=== PATIENT | female | born 1970 | race Caucasian/White ===

== ENCOUNTER 2016-11-27 16:14 | Inpatient (IN) | payer OTHER ==
[~2016-11-27] VITALS: Ht 160 cm; Wt 86.3 kg
[2016-11-27 19:00] VITALS: Ht 160 cm; Wt 86.3 kg
[2016-11-27] MEDS ORDERED: ZOLPIDEM 5 MG TAB PO PRN (19:00)
[2016-11-27] MEDS ORDERED: morphine 2 MG INJ IV PRN (19:00)
[2016-11-27] MEDS ORDERED: DOCUSATE SODIUM 100 MG CAP PO PRN (19:00)
[2016-11-27] MEDS ORDERED: NACL 0.9% 3 ML SYG IV SCH (19:00)
[2016-11-27] MEDS ORDERED: ACETAMINOPHEN 325 MG TAB PO PRN (19:00)
[2016-11-27] MEDS ORDERED: HYDROCODONE/APAP (5/325) TAB PO PRN (19:00)
[2016-11-27] MEDS ORDERED: ONDANSETRON 4 MG INJ IV PRN (19:00)
[2016-11-27 21:44] VITALS: BP 140/75; RESP 18
[2016-11-28 05:25] LABS: ADD SCAN DIFF NO
[2016-11-28 05:34] LABS: BASOPHIL # 0.1 10^3/ul (0.0-0.1); BASOPHILS % 0.6 % (0.0-2.0); EOSINOPHILS # 0.3 10^3/ul (0.0-0.5); EOSINOPHILS % 2.3 % (0.0-7.0); HEMATOCRIT 28.6 % (37.0-47.0); HEMOGLOBIN 8.7 g/dl (12.0-16.0); LYMPHOCYTES % 26.4 % (15.0-51.0); MEAN CORPUSCULAR HEMOGLOBIN 25.1 pg (29.0-33.0); MEAN CORPUSCULAR HGB CONC 30.4 g/dl (32.0-37.0); MEAN CORPUSCULAR VOLUME 82.7 fl (82.0-101.0); MEAN PLATELET VOLUME 9.5 fl (7.4-10.4); MONOCYTE # 1.1 10^3/ul (0.3-0.9); MONOCYTES % 9.3 % (0.0-11.0); NEUTROPHIL # 6.9 10^3/ul (1.6-7.5); NEUTROPHILS % 60.3 % (39.0-77.0); NUCLEATED RED BLOOD CELLS% 0.4 /100WBC (0.0-0.0); PLATELET COUNT 419 10^3/UL (140-415); RED BLOOD COUNT 3.46 10^6/ul (4.20-5.40); RED CELL DISTRIBUTION WIDTH 14.8 % (11.5-14.5); WHITE BLOOD COUNT 11.4 10^3/ul (4.8-10.8)
[2016-11-28 05:42] LABS: IRON 24 ug/dl (35-150)
[2016-11-28 05:46] LABS: ALBUMIN 4.1 g/dl (3.3-4.9); ALBUMIN/GLOBULIN RATIO 1.78; BILIRUBIN,INDIRECT 0.3 mg/dl (0-1.1); BILIRUBIN,TOTAL 0.3 mg/dl (0.2-1.3); CALCIUM 8.4 mg/dl (8.4-10.2); CHOL/HDL RATIO 2.8 RATIO; CREATININE 0.81 mg/dl (0.44-1.00); MAGNESIUM 1.9 mg/dl (1.7-2.5); PHOSPHORUS 4.9 mg/dl (2.5-4.9); POTASSIUM 3.9 mmol/L (3.5-5.1); TOTAL PROTEIN 6.4 g/dl (6.1-8.1)
[2016-11-28 05:51] LABS: TOTAL IRON BINDING CAPACITY 369 ug/dl (241-421)
[2016-11-28] MEDS ORDERED: PANTOPRAZOLE 40 MG INJ IV SCH (06:00)
[2016-11-28 07:55] LABS: T3 UPTAKE 32.9 % (23.5-40.5)
[2016-11-28 08:14] VITALS: BP_SYST 11; BP_SYST 111; BP_DIAS 70; RESP 18
[2016-11-28 08:43] LABS: FOLATE 12.2 ng/ml (2.8-20.0)
--- NOTE | 2016-11-28 08:58 | HP ---
DATE OF ADMISSION: 11/27/2016 TIME SEEN: 2300. CHIEF COMPLAINT: Vaginal bleeding and anemia. HISTORY OF PRESENT ILLNESS: The patient is a 46-year-old female with no significant past medical hi story, who initially went to an outside hospital because of abnormal labs, with a low hemoglobin, as well as for continued vaginal bleeding. She said over the past 1 month she has been having vaginal bleeding on a daily basis. She went to a clinic where labs were drawn and her hemoglobin was found to be 6.1, and as such, she was instructed to go to the hospital. At [facility], latosha munguia she went, she was found to be anemic, was started on a blood transfusion, and was seen by NUT ROASTER. I read their notes and it states that the patient has regular periods, with her menses lasting 4 to 5 days, and as such, they stated that they did not find the etiology of her anemia and in fact, the ir recommendation was for a GI evaluation. However, the patient clearly stated here that she has be en having vaginal bleeding every day for the past 1 month. Transvaginal ultrasound was done at [facility], which showed a possible gestational sac in the endometrium, as well as bilateral complex o varian cysts measuring 2.4 cm on the right and about 1.5 cm on the left. Except for lightheadedness and vertigo-like symptoms that the patient experienced a few days ago, vinny munguia stated she did not have any symptoms. Currently she is also stating she is feeling well. She den ied abdominal pain, chest pain, dizziness/lightheadedness, palpitations, fever, chills, or urinary s ymptoms. PAST SURGICAL HISTORY: Includes and tubal ligation. REVIEW OF SYSTEMS: A 12-point review of systems was performed and negative except as mentioned in t he HPI. PAST MEDICAL HISTORY: As per HPI. PAST SURGICAL HISTORY: As per HPI. SOCIAL HISTORY: Denied a history of tobacco, alcohol or illicit drug use. ALLERGIES: NO KNOWN DRUG ALLERGIES. HOME MEDICATIONS: She takes Tylenol as needed and cranberry tablets. PHYSICAL EXAMINATION: VITAL SIGNS: Blood pressure 140/75, heart rate 78, respiratory rate 18, temperature 98.3, oxygen sa turation 99% on room air. Laboratory values are currently pending here. GENERAL: The patient is lying in bed, in no acute distress, answering questions appropriately, able to speak in full sentences. HEENT: Normocephalic, atraumatic. Extraocular muscles intact. Pupils are reactive to light. CARDIOVASCULAR: Regular rate and rhythm. No extra sounds. LUNGS: Clear. ABDOMEN: Obese, soft, nontender, nondistended. Positive bowel sounds. EXTREMITIES: No edema. NEUROLOGIC: No focal deficits. LABORATORY: Currently pending here, but at the outside hospital hemoglobin was 6.1. Otherwise her CBC and BMP were within normal limits. IMAGING: Transvaginal ultrasound at the outside hospital with results as mentioned in the HPI. IMPRESSION: 1. Vaginal bleeding. 2. Severe anemia, secondary to above. 3. Obesity, with a BMI of almost 34. 4. Bilateral complex ovarian cysts. PLAN: The patient's anemia is clearly the result of her vaginal bleeding which has been going on co ntinuously for a month. As mentioned in the HPI, she has been evaluated by N[facility] RO[facility]ER at [facility] and they seemed to have a different history than what I have, which is they stated that her menses are regular and that they occur every 4 to 5 days and they seem to be unaware of her continu ed vaginal bleeding for a month. Will consult NUT ROASTER here to see if D and C is warranted here, or w hether or not the patient can be followed up as an outpatient. Will follow up her hemoglobin closel y and transfuse as needed. Will also check her iron profile. Stool occult blood has already been checked here and it is negative, so no GI consult is warranted. Of note, the patient denied hematemesis, bright red blood per rectum, or dark stools. She also den ies NSAID abuse, saying that she uses Tylenol for pain as needed. Further workup and management per clinical course. Dictated By: MICHAEL MELENDEZ/WOLFGANG Conf#: [id number] DID#: [id number]
--- NOTE | 2016-11-28 15:02 | PDOCDIS ---
Discharge Instructions CONDITION Patient Condition: Good HOME CARE INSTRUCTIONS: Diet Instructions: Regular ACTIVITY: Activity Restrictions: No Restrictions FOLLOW UP/APPOINTMENTS Appointments F/U WITH A HARP MAKER AND PCP IN 1-2 WEEKS BARRON MYLES Nov 28, 2016 15:02
[2016-11-28] MEDS ORDERED: SOD FERRIC GLUC COMPLX 125 MG in SOD CHLORIDE 0.9% 100 ML IVPB ONE (16:00)
[2016-11-28 20:51] VITALS: BP 118/65; RESP 19
--- NOTE | 2016-11-29 04:18 | DS ---
DATE OF ADMISSION: 11/27/2016 DATE OF DISCHARGE: 11/28/2016 DISCHARGE DIAGNOSES: 1. Anemia, likely secondary to vaginal bleeding. The patient is status post several units of packe d red blood cells. The patient is to follow up with her PCP and caramel cutter machine as an outpatient. The patient also received IV iron in house. 2. Obesity. HOSPITAL COURSE: The patient is a 46-year-old female with no significant medical history. The med ent presents from outside hospital for anemia. She stated she has vaginal bleeding. The patient wa s sent to [facility] for further workup and to rule out gastrointestinal bleed. The patien t had a stool occult blood that was negative. She denied any melena. She denies any juan GI bleed ing. It was felt that the patient's anemia was indeed from her heavy menses, but she currently alka es any heavy vaginal bleeding. Of note, the patient did receive IV iron in house. She has a mild i ejn deficiency but nothing severe. Her MCV was within normal limits but on the lower end. The patient was felt to be stable for discharge. She does have a PCP and, once again, a gynecologis t she follows up with. She was told to follow up with them to have a repeat CBC and to have a gynec ological evaluation. On the day of discharge, the patient's vitals, labs, and physical exam were st able. She had no acute complaints. Questions were answered. CONDITION ON DISCHARGE: Stable. DISPOSITION: To home. MEDICATIONS: The patient is to continue her usual home medications. FOLLOWUP: The patient is to follow up with her PCP in 1 to 2 weeks as well as her caramel cutter machine Greater than 30 minutes was spent coordinating discharge of the patient. Dictated By: BARRON MYLES MD BS/NTS Conf#: [id number] DID#: [id number]
== END 2016-11-28 20:50 | disposition home or self-care (01) | DRG 812 ==
LOC: PP2 17:45
PROVIDERS: ADMIT Internal Medicine; ATTEND Internal Medicine
DX: D50.0 Iron deficiency anemia secondary to blood loss (chronic) (principal); E66.9 Obesity, unspecified; N93.9 Abnormal uterine and vaginal bleeding, unspecified; Z68.34 Body mass index [BMI] 34.0-34.9, adult; N83.202 Unspecified ovarian cyst, left side; N83.201 Unspecified ovarian cyst, right side
CPT/HCPCS: 80053; 80061; 82270; 82607; 82746; 83036; 83540; 83735; 84100; 84436; 84479; 85025; C9113; J2916